=== PATIENT | male | born 1925 | race Caucasian/White ===

== ENCOUNTER 2016-09-10 19:25 | Emergency (ER) | payer MEDICARE ==
[~2016-09-10] VITALS: Ht 177.8 cm; Wt 68.0 kg
[2016-09-10] MEDS ORDERED: PLEASE ENTER ALLERGIES MC SCH ×2 (20:30)
[2016-09-10] MEDS ORDERED: LIDOCAINE 1%-EPI 1:100K, 20ML SQ ONE (20:30)
[2016-09-10] MEDS ORDERED: LIDOCAINE 1%-EPI 1:100K, 20ML ONE (20:34)
[2016-09-10 21:11] LABS: HEMOGLOBIN 13.4 g/dL (13.7-18.0)
[2016-09-10 21:22] LABS: BLOOD UREA NITROGEN 20 mg/dL (7-18)
[2016-09-11 00:15] VITALS: BP 138/51
== END 2016-09-11 00:23 | disposition home or self-care (01) ==
LOC: ED 22:20
DX: S01.01XA Laceration without foreign body of scalp, initial encounter (principal); F03.90 Unspecified dementia, unspecified severity, without behavioral disturbance, psychotic disturbance, mood disturbance, and anxiety; M25.511 Pain in right shoulder; I10 Essential (primary) hypertension; Z86.2 Personal history of diseases of the blood and blood-forming organs and certain disorders involving the immune mechanism; W19.XXXA Unspecified fall, initial encounter; Y93.89 Activity, other specified; Y99.8 Other external cause status; Y92.129 Unspecified place in nursing home as the place of occurrence of the external cause
CPT/HCPCS: 12002; 36415; 70450; 71020; 72125; 80048; 82040; 85025; 85610; 85730; 93005